=== PATIENT | male | born 1965 | race Caucasian/White ===

== ENCOUNTER 2017-03-11 05:56 | Inpatient (IN) | payer OTHER ==
[~2017-03-11] VITALS: Ht 190.5 cm; Wt 98.5 kg
--- NOTE | ~2017-03-11 | HP ---
Unit #: [id number] #: [id number] Patient: MAX SHARPE [id number] [facility] [address] [facility]. [place], [place] [address] [id number] MR#: [id number] NAME: MAX SHARPE ROOM: 46 Age: 52 Sex: M Admission Date: 03/11/2017 : 1965 Attending Physician: Diana Krause M.D. Primary Care Physician: No Primary Care Physician HISTORY AND PHYSICAL CHIEF COMPLAINT Right leg pain. HISTORY OF PRESENT ILLNESS The patient is a 52-year-old male with a past medical history of diabetes, polysubstance abuse who presented to the emergency department for evaluation of the above. The patient states that he was working at [employer] several months ago and had to wear rubber boots. He developed a blister on the plantar surface of his right great toe. He states that his feet were always wet and hot. The wound is not healing. He denies any drainage from the wound. No fever. He denies any similar types of wounds. No vomiting or diarrhea. In the emergency department, a right foot x-ray was done and showed no acute abnormality. Laboratory notable for white blood cell count of 11.3. He was given clindamycin. He is being admitted to [facility] for evaluation and further treatment. He was given clindamycin and Zosyn. He is being admitted to [facility] for evaluation and further treatment. PAST MEDICAL HISTORY Diabetes. PAST SURGICAL HISTORY 1. Rhinoplasty. 2. Leg surgery. SOCIAL HISTORY The patient is no longer working at [employer]. He smokes a pack of cigarettes daily. He reports cocaine and Methamphetamine use, as well as marijuana use. He smokes a pack of cigarettes daily. FAMILY HISTORY Noncontributory. ALLERGIES Codeine. HOME MEDICATIONS Metformin. REVIEW OF SYSTEMS A complete review of systems is negative except as indicated in the HPI. Unit #: [id number] #: [id number] Patient: MAX SHARPE The patient does not routinely check his blood sugars. PHYSICAL EXAMINATION VITAL SIGNS: Temperature is 97.4, pulse 102, respirations 18, blood pressure 141/55, oxygen saturation 96% on room air. GENERAL: The patient is a male who is sleeping but wakes to voice. HEENT: Head is atraumatic. Mucous membranes are moist. NECK: Supple. Trachea is midline. CARDIOVASCULAR: Regular rate and rhythm. LUNGS: Clear to auscultation bilaterally with no increased work of breathing. ABDOMEN: Soft, nontender with bowel sounds present in all four quadrants. EXTREMITIES: The plantar service of the right toe demonstrates a 1 cm wound with a red-yellow base that is malodorous. He does have a 2+ dorsalis pedis pulse involving the right foot. There is also an abrasion to the anterior aspect of the leg with surrounding erythema and warmth. There is no pedal edema involving the left lower extremity. NEUROLOGIC: The patient is awake and alert. He is oriented. He follows commands. PSYCH: Mood and affect are normal. The patient is cooperative. SKIN: Demonstrates the previously described abnormalities. DIAGNOSTIC TESTS LABORATORY DATA: Complete blood count notable for white blood cell count of 11.3, hemoglobin and hematocrit 11.4 and 36.5 respectively. Basic metabolic panel notable for a glucose of 157. Urinalysis notable for trace protein, 500 glucose. ASSESSMENT The patient is a 52-year-old male with: 1. Diabetic foot wound. The patient received clindamycin and Zosyn in the emergency department. 2. Leukocytosis. 3. Tobacco abuser. 4. Polysubstance abuse. 5. Diabetes. 6. History of diverticulitis. PLANS 1. Admit to med/surg. 2. NPO until seen by podiatry. 3. Consult podiatry regarding diabetic foot wound. 4. Blood cultures x2. 5. Wound culture and sensitivity. 6. Vancomycin IV and Zosyn IV pending further workup. 7. P.r.n. Tylenol. 8. P.r.n. Zofran. 9. Accu-Cheks. 10. Low dose sliding scale insulin. 11. Normal saline at 75 mL an hour. 12. Urine tox screen on urine in the lab. 13. Repeat labs in the morning. 14. Additional workup and consultants based on above. Dictated by Unit #: [id number] #: [id number] Patient: MAX SHARPE M.D. AW/sb TD: 03/11/2017 12:44 JOB #: [id number] HISTORY AND PHYSICAL Page 1 of 1 X Diana Krause MD HISTORY AND PHYSICAL
--- NOTE | ~2017-03-11 | CR253 ---
[facility] A Service of [facility] RADIOLOGY TEXT RESULTS PATIENT: MAX SHARPE LOCATION: [facility] [id number] : [birth year] UNIT #: [id number] AGE: [address]: Diana Krause MD SEX: M ORDER DR: [id number] [place], [place] [address] [id number] I MR#: [id number] Acc #: [id number] NAME: MAX SHARPE : 1965 SEX: M STUDY DATE/TIME: 03/11/2017 6:25 UNIT: [facility] ROOM: [facility] STUDY DESCRIPTION: CR Tibia and Fibula 2 Views Rt Attending Physician: Diana Krause M.D. Ordering Physician: Rufus Salguero D.O. Primary Care Physician: Primary Care Physician No MEDICAL IMAGING REPORT This report is preliminary unless electronic signature is present EXAM Right tibia and fibula 03/11/2017 INDICATION Redness and wound pain, open wound, diabetic ulcers, symptoms 2 weeks. TECHNIQUE Two views of the right tib-fib. No relevant comparisons. FINDINGS Postop changes of the distal femur. There is degenerative change in the right knee. The bones are osteopenic. There is generalized soft tissue prominence but no acute fracture or retained opaque foreign body. IMPRESSION 1. Osteopenia with soft tissue prominence but no acute fracture or retained opaque foreign body. No distinct subcutaneous emphysema. 2. Postop changes distal right femur. Dictated by... Sung Moreira M.D. THIS IS AN ELECTRONICALLY VERIFIED REPORT Sung Moreira M.D. at 03/12/2017 7:33 AM TY/desirae TD: 03/12/2017 05:59 JOB #: [id number] MEDICAL IMAGING REPORT Page 1 of 1 COPY
--- NOTE | ~2017-03-11 | CR263 ---
[facility] A Service of [facility] RADIOLOGY TEXT RESULTS PATIENT: MAX SHARPE LOCATION: [facility] [address] : [birth year] UNIT #: [id number] AGE: [address]: Diana Krause MD SEX: M ORDER DR: [id number] [place], [place] [address] [id number] I MR#: [id number] Acc #: [id number] NAME: MAX SHARPE : 1965 SEX: M STUDY DATE/TIME: 03/11/2017 6:26 UNIT: [facility] ROOM: 4 STUDY DESCRIPTION: CR Toe 2 Views Great Rt Attending Physician: Diana Krause M.D. Ordering Physician: Rufus Salguero D.O. Primary Care Physician: Primary Care Physician No MEDICAL IMAGING REPORT This report is preliminary unless electronic signature is present EXAM Right great toe series 03/11/2017 INDICATION Pain, redness, open wound, diabetic ulcers, symptoms 2 weeks. Diabetic ulcer of the right great toe. TECHNIQUE Four views of the right great toe. No comparison. FINDINGS There is a plantar soft tissue ulcer measuring up to 1.3 cm maximum diameter and extending a depth of about 6 mm on the lateral projection. There is no associated erosive change of the adjacent distal phalanx of the great toe. No retained opaque foreign body. No fracture. Degenerative changes of the DIP joint. IMPRESSION Plantar soft tissue ulcer. No evidence of retained opaque foreign body, acute fracture or focal erosive change. Dictated by... Sung Moreira M.D. THIS IS AN ELECTRONICALLY VERIFIED REPORT Sung Moreira M.D. at 03/12/2017 7:33 AM TY/desirae TD: 03/12/2017 06:01 JOB #: [id number] [facility] A Service [facility] RADIOLOGY TEXT RESULTS PATIENT: MAX SHARPE LOCATION: [place] [address] : [birth year] UNIT #: [id number] AGE: [address]: Diana Krause MD SEX: M ORDER DR: MEDICAL IMAGING REPORT Page 1 of 1 COPY
--- NOTE | ~2017-03-11 | DS ---
Unit #: [id number] #: [id number] Patient: MAX SHARPE [id number] [address] [address] [id number] I MR#: [id number] NAME: MAX SHARPE ROOM: 46 Age: 52 Sex: M Admission Date: 03/11/2017 : 1965 Discharge Date: 03/12/2017 Attending Physician: Milla Clinton M.D. Primary Care Physician: Primary Care Physician No DISCHARGE SUMMARY ADMISSION DIAGNOSES 1. Diabetic foot wound. 2. Leukocytosis. 3. Tobacco abuser. 4. Polysubstance abuse. 5. Type 2 diabetes mellitus. 6. History of diverticulitis. DISCHARGE DIAGNOSES 1. Right foot diabetic wound. 2. Leukocytosis, resolved. 3. Tobacco abuse. 4. Polysubstance abuse. 5. Type 2 diabetes mellitus, noncompliant with medication regimen. 6. Mild acute versus chronic versus acute on chronic anemia. CONSULTANTS Dr. Kb Cameron, Podiatry and Dr. Smart, Podiatry. CONDITION Stable. DISPOSITION Home. DIAGNOSTIC STUDIES LABORATORY RESULTS: WBC 9.8, hemoglobin 11.6, hematocrit 36.4, platelets 190,000. PT 11.5, INR 1.1. Sodium 137, potassium 4.2, chloride 103, CO2 of 28, glucose 157, BUN 15, creatinine 0.9, calcium 8.7. Blood cultures x2, preliminary, no growth after 24 hours. Hemoglobin A1c 5.4. Urine drug screen positive for amphetamines and marijuana. IMAGING STUDIES: Right tibia and fibula, impression per report; osteopenia with soft tissue prominence, but no acute fracture or retained opaque foreign body. No distinct subcutaneous emphysema. Postop changes, distal right femur. Right great toe series on 03/11/2017, impression; plantar soft tissue ulcer, no evidence of retained opaque foreign body or acute fracture. No focal erosive change. DISCHARGE MEDICATIONS Metformin hydrochloride 500 mg tab one p.o. b.i.d. with meals. Please Unit #: [id number] #: [id number] Patient: MAX SHARPE note, the patient has some medications that were prescribed in 03/2016 from home. He has no refills on this medication. The patient has been advised to be compliant and take these medications as ordered with meals. I have also given him a new prescription for metformin 500 mg one p.o. b.i.d., one with breakfast and one with supper as he has no refills on the current medication. The patient is to follow up with his primary care physician for further evaluation management of diabetes mellitus and refills on this medication. Bactrim DS one tab p.o. b.i.d. x7 days, #14, no refills, per recommendation of railway station manager, Dr. Kb Cameron. He is working with Dr. Berry DPM. DISCHARGE INSTRUCTIONS The patient will be discharged home. Right great toe wound care and followup instructions are per Dr. Cameron's and Dr. Smart's podiatry orders. Dressing supplies as instructed by Podiatry to be sent home with the patient. The patient is to call his health insurance company or refer to the [facility] PCP provider list to call and schedule a followup appointment with PCP in 1 to 2 weeks for anemia and type 2 diabetes mellitus. The patient is to follow up with Podiatry per their orders. HOSPITAL COURSE The patient is a 52-year-old male, who presented to [facility] on the day of admission with complaints of right leg pain. The patient was noted to have a mild elevation in white blood cell count in the emergency department. He was treated with IV clindamycin and Zosyn in the emergency department. He was subsequently started on IV vancomycin, and IV Zosyn was continued pending Podiatry's recommendations. The patient has been afebrile, non tachycardic, non tachypneic and has exhibited no hypo or hypertension. Accu-Cheks have been mildly elevated, but stable. The patient has been evaluated by Dr. Cameron and cleared by Podiatry for discharge home with discharge instructions as dictated above. Per discussion with Dr. Cameron, the recommendation is for the patient to be discharged home on Bactrim DS one p.o. b.i.d. for 7 days. The patient is awake and alert, in no acute distress. The patient's condition and discharge pending status have been discussed with Dr. Clinton and the order has been given and received to discharge home with discharge and followup instructions as dictated above. Please refer to the history and physical report in [facility] for complete information. Dictated by... Noris Brown A.P.R.N. for Leni Lutz/shreya TD: 03/14/2017 23:24 JOB #: [id number] Unit #: [id number] #: [id number] Patient: MAX SHARPE DISCHARGE SUMMARY Page 1 of 1 X Noris Brown APRN X DISCHARGE SUMMARY
[2017-03-11 07:14] LABS: BASOPHIL# 0.1 X10e3 (0-0.3); BASOPHIL% 0.8 % (0-2.5); EOSINOPHIL# 0.4 X10e3 (0-0.7); EOSINOPHIL% 3.3 % (0.0-7.0); HEMATOCRIT 36.5 % (38.0-50.0); HEMOGLOBIN 11.4 gm/dL (13.0-16.0); LYMPHOCYTE# 2.9 X10e3 (1.0-3.5); LYMPHOCYTE% 26.1 % (17.0-45.0); MEAN CORPUSCULAR HEMOGLOBIN 28.1 PG (28-34); MEAN CORPUSCULAR HGB CONC 31.3 g/dL (30-36); MEAN PLATELET VOLUME 9.3 FL (6.5-11.5); MONOCYTE# 0.7 X10e3 (0-1.0); NEUTROPHIL# 7.2 X10e3 (1.5-7.1); NEUTROPHIL% 63.8 % (40-75); PLATELET COUNT 211 X10e3 (140-420); RED BLOOD COUNT 4.06 X10e (3.90-5.60); WHITE BLOOD COUNT 11.3 X10e3 (4.0-10.5)
[2017-03-11 07:21] LABS: DIFF IND NO
[2017-03-11 07:52] LABS: BUN/CREATININE RATIO 14.54; CALCIUM SERUM 9.3 mg/dL (8.4-10.2); CREATININE SERUM 1.1 mg/dL (0.6-1.4); GLOM FILT RATE Estimated 76.8 mL/min (>60); POTASSIUM 3.8 mmol/L (3.5-5.1)
[2017-03-11] MEDS ORDERED: METFORMIN PO (09:19)
[2017-03-11 09:27] LABS: URINE APPEARANCE CLOUDY; URINE BILIRUBIN NEG (NEG); URINE BLOOD NEG (NEG); URINE COLOR DK YELLOW; URINE GLUCOSE 500 MG/DL (NEG); URINE KETONE NEG (NEG); URINE LEUKOCYTE ESTERASE NEG (NEG); URINE NITRATE NEG (NEG); URINE PROTEIN TRACE (NEG); URINE SPECIFIC GRAVITY 1.019 (1.003-1.035)
[2017-03-11 09:39] LABS: URINE SOURCE CLEAN CATCHA
[2017-03-11 09:40] LABS: CULTURE INDICATED? NO
[2017-03-11 14:51] LABS: AMPHETAMINE POS (NEG); BARBITURATES NEG (NEG); BENZODIAZEPINES NEG (NEG); COCAINE NEG (NEG); MARIJUANA POS (NEG); OPIATES NEG (NEG); TRICYCLIC ANTIDEPRESSANTS NEG (NEG); U METHADONE NEG (NEG)
[2017-03-12 03:34] LABS: HEMATOCRIT 36.4 % (38.0-50.0); HEMOGLOBIN 11.6 gm/dL (13.0-16.0); MEAN CELL VOLUME 89.8 FL (83-96); MEAN CORPUSCULAR HEMOGLOBIN 28.7 PG (28-34); MEAN CORPUSCULAR HGB CONC 31.9 g/dL (30-36); MEAN PLATELET VOLUME 9.3 FL (6.5-11.5); RED BLOOD COUNT 4.05 X10e (3.90-5.60); RED CELL DISTRIBUTION WIDTH 15.8 % (11.0-15.5); WHITE BLOOD COUNT 9.8 X10e3 (4.0-10.5)
[2017-03-12 03:48] LABS: INR 1.1; PROTHROMBIN TIME (PATIENT) 11.5 SECONDS (10.0-11.7)
[2017-03-12 03:58] LABS: BUN/CREATININE RATIO 16.66; CALCIUM SERUM 8.7 mg/dL (8.4-10.2); CREATININE SERUM 0.9 mg/dL (0.6-1.4); GLOM FILT RATE Estimated 97.9 mL/min (>60); POTASSIUM 4.2 mmol/L (3.5-5.1)
[2017-03-12] MEDS ORDERED: BACTRIM DS TAB1 EACH PO (17:36)
== END 2017-03-12 18:49 | disposition home or self-care (01) | DRG 639 ==
LOC: CED 05:56 → CEDOF 09:00 → C4C 09:00 → CEDOF 10:12 → CED 10:12 → C4C 10:27 → CEDOF 10:27 → C4C 10:27
PROVIDERS: Emergency Medicine; Family Medicine
DX: E11.621 Type 2 diabetes mellitus with foot ulcer (principal); D64.9 Anemia, unspecified; F17.210 Nicotine dependence, cigarettes, uncomplicated; Z79.84 Long term (current) use of oral hypoglycemic drugs; F19.10 Other psychoactive substance abuse, uncomplicated; Z91.14 Patient's other noncompliance with medication regimen
CPT/HCPCS: 73590; 73660; 80048; 80307; 81003; 82947; 83036; 85025; 85027; 85610; 87040; J1815; J2543; J3370